=== PATIENT | male | born 1995 | race Caucasian/White ===

== ENCOUNTER 2021-01-28 16:33 | Emergency (ER) | payer OTHER ==
[2021-01-28] MEDS ORDERED: VENTOLIN HFA IN18 GM INH (20:45)
[2021-01-28] MEDS ORDERED: MEDROL 4MG DOSEP4 MG PO (20:45)
== END 2021-01-28 21:00 | disposition home or self-care (01) ==
LOC: FER 16:33
DX: R06.02 Shortness of breath (principal)
CPT/HCPCS: 71046; 93005; 94640; 94664; J7512